=== PATIENT | male | born 1955 | race Caucasian/White ===

== ENCOUNTER → 2021-03-23 | Outpatient (CLI) | payer MEDICARE, OTHER ==
--- NOTE | 2021-03-23 15:40 | EST ---
EXERCISE STRESS AGE: 65 SEX: M HT: 6'8" WT: 214 lbs. PROTOCOL: Erickson STAGE: 3 DURATION OF EXERCISE: 9:00 HEART RATE REST: 56 BLOOD PRESSURE REST: 144/92 MAXIMUM HEART RATE ACHIEVED: 150 MAXIMUM BLOOD PRESSURE: 204/107 85% MPHR: 132 100% MPHR: 155 METS: 10.3 INDICATIONS: Shortness of breath CLINICAL INFORMATION: Baseline EKG revealed normal sinus rhythm without significant ST-T changes. There were voltage criteria for LVH. Rare PVCs were noted. Patient walked on a standard Erickson protocol for 9 minutes, achieved a maximal heart rate of 150 beats per minute, which is well above 85% of predicted maximal. Resting heart rate was 56 beats per minute. Peak blood pressure was 204/107. Resting blood pressure was 141/92. Patient did not have angina. EKG did not reveal any ST-segment changes to indicate ischemia. By EKG criteria, this is a negative stress test with isolated PVCs at peak exercise, no angina, and hypertensive response to exercise. The nuclear scan results, which are more pertinent, will be reported by the radiologist. MMODL / IJN: [id number] /
== END | disposition home or self-care (01) ==
LOC: RADNMMAIN 08:18
PROVIDERS: ATTEND Family Medicine
DX: R06.02 Shortness of breath (principal)
CPT/HCPCS: 93017

== ENCOUNTER → 2024-08-16 | Day surgery (SDC) | payer MEDICARE, OTHER ==
[2024-08-14 15:10] VITALS: BMI 24.7
[~2024-08-16] MED LIST: LIDOCAINE 1% INJ 10MG/ML (20 ML MDV) ONE; PROPOFOL 10 MG/ML 20 ML VIAL IV ONE
[2024-08-16] MEDS: IV FLUID CONTINUATION 1,000 ML IV ONE (11:30)
[2024-08-16] MEDS: LACTATED RINGERS 1,000 ML IV SCH (11:31)
[2024-08-16 11:39] VITALS: RESP 16; TEMP 98
--- NOTE | 2024-08-16 12:53 | P.PCN ---
Date of Procedure: 08/16/24 Procedure(s) Performed: BRIEF HISTORY: Patient is a 69-year-old pleasant white male scheduled for an elective colonoscopy as a part of screening for colon cancer and family history of colon cancer. His mother was diagnosed with colon cancer in her late 60s. PROCEDURE PERFORMED: Colonoscopy snare polypectomy and Endo Clip placement. PREOPERATIVE DIAGNOSIS: Screening for colon cancer and family history of colon cancer. IV sedation per Anesthesia. PROCEDURE: After informed consent was obtained, the patient, was brought into the endoscopy unit. IV sedation was administered by Anesthesia under continuous monitoring. Digital rectal examination was normal. Initially the Olympus CF-160 flexible video colonoscope was then inserted in the rectum, gradually advanced into the cecum without any difficulty. Careful examination was performed as the scope was gradually being withdrawn. Ileocecal valve and the appendiceal orifice were visualized and appeared normal. Prep was excellent. Mucosa of the cecum, appeared normal. The ascending colon there was a 1.5 cm polyp removed by snare polypectomy. Hepatic fracture there was a 5 mm polyp removed by snare polypectomy. Rest of the ascending colon, transverse colon, descending colon, sigmoid colon normal. The rectosigmoid colon at 20 cm from the anal verge there was a 3 cm broad-based polyp that was removed by piecemeal snare polypectomy and complete polypectomy accomplished. Following this Endo Clip was placed. In the rectum there was a 1 cm polyp removed by snare polypectomy. Retroflexion was performed in the rectum and no lesions were seen. The patient tolerated the procedure well. IMPRESSION: 1.5 cm ascending colon polyp status post hot snare polypectomy 5 mm hepatic flexure polyp status post snare polypectomy 3 cm broad-based rectosigmoid polyp at 20 cm from anal verge status post snare polypectomy followed by Endo Clip placement and complete polypectomy accomplished 1 cm rectal polyp status post polypectomy RECOMMENDATIONS: Findings of this examination were discussed with the patient as well as his family. He was advised to follow-up with the biopsy results. In the office in 2 weeks. If the biopsy reveals adenoma he can have repeat colonoscopy in 1 year..
[2024-08-16 13:21] VITALS: BP 123/86; PULSE 52
== END ==
LOC: ORWHC2ENDO 11:00
PROVIDERS: ATTEND Internal Medicine Gastroenterology
DX: Z12.11 Encounter for screening for malignant neoplasm of colon (principal); D12.2 Benign neoplasm of ascending colon; D12.3 Benign neoplasm of transverse colon; D12.7 Benign neoplasm of rectosigmoid junction; K21.9 Gastro-esophageal reflux disease without esophagitis; Z80.0 Family history of malignant neoplasm of digestive organs; Z89.522 Acquired absence of left knee; Z90.12 Acquired absence of left breast and nipple; Z79.899 Other long term (current) drug therapy
CPT/HCPCS: 45385; J2003; J2704; 88305